=== PATIENT | female | born 1965 | race Caucasian/White ===

== ENCOUNTER 2016-09-24 09:49 | Outpatient (CLI) | payer OTHER | END 2016-09-24 09:50 | disposition home or self-care (01) | DX: M79.671 Pain in right foot (principal); M19.071 Primary osteoarthritis, right ankle and foot; M20.11 Hallux valgus (acquired), right foot ==

== ENCOUNTER 2016-09-30 09:52 | Day surgery (SDC) | payer OTHER ==
[2016-09-30] MEDS ORDERED: CLINDAMYCIN 600 MG/50 ML 50 ML IV ONE (10:05)
[2016-09-30] MEDS ORDERED: LACTATED RINGERS 1,000 ML IV ONE ×2 (10:42→11:25)
[2016-09-30] MEDS ORDERED: LIDOCAINE MPF 1%-EPI 1:200000 30 ML VIAL SUBQ ONE (11:15)
[2016-09-30] MEDS ORDERED: fentaNYL 100 MCG/2 ML VIAL IVP ONE (12:00)
[2016-09-30] MEDS ORDERED: DEXAMETHASONE 4 MG/ML VIAL IVP ONE (12:00)
[2016-09-30] MEDS ORDERED: PROPOFOL 200 MG/20 ML VIAL IVP ONE (12:00)
[2016-09-30] MEDS ORDERED: MIDAZOLAM 2 MG/2 ML VIAL IVP ONE (12:00)
[2016-09-30] MEDS ORDERED: ONDANSETRON 4 MG/2 ML VIAL IVP ONE (12:00)
[2016-09-30] MEDS ORDERED: LIDOCAINE-MPF 2% 5 ML VIAL IM ONE (12:00)
[2016-09-30] MEDS ORDERED: KETOROLAC 15 MG/ML VIAL ONE (12:29)
[2016-09-30] MEDS ORDERED: oxyCOD/ACETAMIN 5 MG/325 MG TABLET PO ONE (12:58)
== END 2016-09-30 09:53 | disposition home or self-care (01) ==
PROC: 0QBN0ZZ Excision of Right Metatarsal, Open Approach (ICD-10-PCS; principal; 2016-09-30 11:15)
PROC: 0SNM0ZZ Release Right Metatarsal-Phalangeal Joint, Open Approach (ICD-10-PCS; 2016-09-30 11:15)
DX: M21.611 Bunion of right foot (principal); M20.41 Other hammer toe(s) (acquired), right foot; I10 Essential (primary) hypertension; F32.9 Major depressive disorder, single episode, unspecified; F41.9 Anxiety disorder, unspecified; E66.9 Obesity, unspecified; Z68.41 Body mass index [BMI] 40.0-44.9, adult; Z88.0 Allergy status to penicillin; E55.9 Vitamin D deficiency, unspecified
CPT/HCPCS: 28270; 28296; A9270; J7120

== ENCOUNTER 2016-10-23 12:22 | Outpatient (CLI) | payer OTHER | END 2016-10-23 12:23 | disposition home or self-care (01) | DX: Z48.89 Encounter for other specified surgical aftercare (principal); M79.89 Other specified soft tissue disorders ==

== ENCOUNTER 2016-11-10 12:19 | Outpatient (CLI) | payer OTHER | END 2016-11-10 12:20 | disposition home or self-care (01) | DX: M17.12 Unilateral primary osteoarthritis, left knee (principal); M23.92 Unspecified internal derangement of left knee; M25.462 Effusion, left knee; M71.22 Synovial cyst of popliteal space [Baker], left knee ==

== ENCOUNTER 2021-04-26 08:00 | Outpatient (CLI) | payer OTHER | END 2021-04-26 08:01 | disposition home or self-care (01) | LOC: LAB.N 08:00 | PROVIDERS: ATTEND Family Medicine | DX: R07.0 Pain in throat (principal); Z20.822 Contact with and (suspected) exposure to COVID-19 | CPT/HCPCS: 87070 ==

== ENCOUNTER 2022-10-29 17:28 | Outpatient (CLI) | payer OTHER ==
--- NOTE | 2022-10-30 09:53 | MRI Report ---
PROCEDURE: LUMBAR SPINE WO INDICATIONS: RIGHT SIDE SCIATICA, BOWEL INCONTINENCE TECHNIQUE: Noncontrast sagittal T1 spin echo and T2 fast echo, sagittal STIR, axial T1 and T2 fast spin echo thr ough the lumbar spine. In cases with scoliosis, additional coronal T2 fast spin echo may be performe d. COMPARISON: None. FINDINGS: Image quality: Excellent. Alignment and Curvature: There is normal bony alignment. Bone Marrow: Marrow is of normal overall signal. No acute vertebral body compression fractures. Spinal Cord: Conus medullaris terminates at the L1-L2 level. Visualized cord demonstrates normal si gnal and size. Paraspinous Soft Tissues: No paravertebral masses. T12-L1: Minimal disc bulge. No canal stenosis or foraminal stenosis. L1-L2: Facet hypertrophy. No canal stenosis. Mild bilateral foraminal stenosis. L2-L3: Disc bulge. Facet hypertrophy. Mild canal stenosis. No significant foraminal stenosis. L3-L4: Disc bulge. At least moderate facet hypertrophy. Mild to moderate canal stenosis. Mild right foraminal narrowing and [id number] left foraminal narrowing. L4-L5: Disc bulge. Prominent facet hypertrophy with a medially directed facet joint cyst off the ri ght facet. Moderate to severe canal stenosis. There are anteriorly directed facet joint cyst off the right facet into the right foramen resulting in moderate to severe right foraminal narrowing and a de gree of right foraminal L4 nerve root impingement. L5-S1: Bilateral facet hypertrophy. No canal stenosis or foraminal stenosis. IMPRESSION: 1. There is underlying multilevel facet arthropathy. 2. Findings are most significant at L4-L5. There is moderate to severe canal stenosis and moderate to severe right foraminal narrowing. 3. At L3-L4, there is mild to moderate canal stenosis. Reviewed by: Rick Molina MD on 10/30/2022 9:52 AM PDT Approved by: Rick Molina MD on 10/30/2022 9:52 AM PDT Station ID: [id number]
== END 2022-10-29 17:29 | disposition home or self-care (01) ==
LOC: DI 17:28
PROVIDERS: ATTEND Nurse Practitioner Family
DX: R15.9 Full incontinence of feces (principal); M54.31 Sciatica, right side; M47.816 Spondylosis without myelopathy or radiculopathy, lumbar region; M48.061 Spinal stenosis, lumbar region without neurogenic claudication